=== PATIENT | female | born 1975 ===

== ENCOUNTER 2018-04-17 05:46 | Inpatient (IN) ==
[2018-04-17] MEDS ORDERED: DEXTROSE 50% 25 GM/50 ML VIAL IV PRN (08:50)
[2018-04-17] MEDS ORDERED: GLUCAGON 1 MG VIAL IM PRN (08:50)
[2018-04-17] MEDS: PANTOPRAZOLE 40 MG TABLET PO SCH (09:18)
[2018-04-17] MEDS: SODIUM CHLORIDE 0.9% 1,000 ML IV SCH (09:21)
[2018-04-17 10:00] LABS: Basophils % 0.1 % (0.0-0.8); Eosinophils # 0.1 10*3/uL (0.0-0.87); Eosinophils % 0.3 % (0.00-10.9); Hematocrit 26.6 VOL% (35.7-47.0); Hemoglobin 8.5 GM/DL (12.0-16.0); Immature Granulocytes % 0.8 %; Immature Granulocytes Absolute 0.19 #; Lymphocytes # 0.9 10*3/uL (1.4-4.0); Lymphocytes % 3.9 % (21.3-54.2); Mean Corpuscular Hemoglobin 30 PG (27-34); Mean Platelet Volume 11.4 FL (9.6-12.0); Monocytes # 0.2 10*3/uL (0.11-0.8); Monocytes % 0.9 % (1.7-12.7); Neutrophils # 21.5 10*3/uL (1.4-7.4); Platelet Count 195 T/CUMM (130-400); Red Blood Count 2.83 MC/CUMM (3.8-5.5); White Blood Count 22.9 T/CUMM (4-12)
[2018-04-17 10:20] LABS: Band Neutrophils 2 % (0-10); Lymphocytes 6 % (20-55); Microcytosis 1+; Segmented Neutrophils 90 % (50-85); Total Cells Counted 100
[2018-04-17 10:21] LABS: Platelet Estimate Adequate
[2018-04-17 10:27] LABS: Alanine Aminotransferase 17 U/L (13-56); Albumin 2.3 G/DL (3.4-5.0); Alkaline Phosphatase 124 U/L (45-117); Aspartate Amino Transferase 12 U/L (0-37); Bilirubin,Direct < 0.100 MG/DL (0.0-0.20); Bilirubin,Indirect 0.3 MG/DL (0.0-1.0); Total Protein 6.9 G/DL (6.4-8.3)
[2018-04-17 10:35] LABS: Calcium 7.6 MG/DL (8.5-10.1); Osmolality,Calculated 291.5 MOS/KG (273-304); Potassium 4.6 MMOL/L (3.5-5.1); Risk Ratio 2.79; Thyroid Stimulating Hormone 4.07 uIU/ml (0.358-3.74); VLDL CHOLESTEROL 16.8 MG/DL
[2018-04-17] MEDS: PIPERACILLIN/TAZOBACTAM 3,375 MG in SODIUM CHLORIDE 0.9% 100 ML IV SCH ×2 (11:36→23:43)
[2018-04-17] MEDS ORDERED: VANCOMYCIN INJ 1,500 MG in SODIUM CHLORIDE 0.9% 500 ML IV ONE (12:00)
[2018-04-17 12:54] LABS: Apearance,Urine Slightly Hazy (Clear); Bacteria,Urine Occasional /HPF (Few); Bilirubin,Urine Negative (Negative); Blood, Urine Small mg/dL (Negative); Glucose,Urine (UA) 150 mg/dL (Negative); Ketones,Urine Negative (Negative); Mucus,Urine Occasional /LPF (Occasional); Nitrite,Urine Negative (Negative); Protein,Urine >=500 MG/DL; RBC,Urine 1 /HPF (0-4); Squamous Epithelial Cell,Urine Occasional /HPF (0-10); Urine Color Yellow (Yellow); Urine Specific Gravity 1.011 (1.001-1.035); Urine Urobilinogen < 2.0 EU/DL (0.2-1.0); WBC,Urine 3 /HPF (0-6)
[2018-04-17] MEDS: cloNIDine 0.1 MG TABLET PO PRN (20:57)
[2018-04-17] MEDS: ACETAMINOPHEN 325 MG TABLET PO PRN (23:49)
[2018-04-18] MEDS: SODIUM CHLORIDE 0.9% 1,000 ML IV SCH ×2 (03:34→09:18)
[2018-04-18 05:15] LABS: Basophils % 0.1 % (0.0-0.8); Eosinophils # 0.2 10*3/uL (0.0-0.87); Hematocrit 21.4 VOL% (35.7-47.0); Immature Granulocytes % 1.4 %; Immature Granulocytes Absolute 0.21 #; Lymphocytes # 1.1 10*3/uL (1.4-4.0); Lymphocytes % 7.6 % (21.3-54.2); Mean Corpuscular HGB Conc 32.7 GM/DL (32-36); Mean Corpuscular Hemoglobin 30 PG (27-34); Mean Corpuscular Volume 92.2 FL (87-102); Mean Platelet Volume 11.3 FL (9.6-12.0); Monocytes # 0.3 10*3/uL (0.11-0.8); Monocytes % 1.7 % (1.7-12.7); Neutrophils # 13.3 10*3/uL (1.4-7.4); Neutrophils % 88.2 % (38.7-73.9); Platelet Count 202 T/CUMM (130-400); Red Blood Count 2.32 MC/CUMM (3.8-5.5); Red Cell Distribution Width 14.3 % (9.3-17.3); White Blood Count 15.1 T/CUMM (4-12)
[2018-04-18 05:35] LABS: Osmolality,Calculated 284.8 MOS/KG (273-304); Potassium 4.8 MMOL/L (3.5-5.1)
[2018-04-18 06:00] LABS: PT Patient Result 10.8 SECS; Partial Thromboplastin Time 36.2 SECS (0-40)
[2018-04-18] MEDS: PANTOPRAZOLE 40 MG TABLET PO SCH (09:18)
[2018-04-18] MEDS ORDERED: SODIUM CHLORIDE 0.9% 1,000 ML IV PRN (09:34)
[2018-04-18 10:08] LABS: Hematocrit 26.8 VOL% (35.7-47.0)
[2018-04-18 10:24] LABS: Hemoglobin 8.7 GM/DL (12.0-16.0)
[2018-04-18] MEDS: PIPERACILLIN/TAZOBACTAM 3,375 MG in SODIUM CHLORIDE 0.9% 100 ML IV SCH ×2 (10:41→22:07)
[2018-04-18] MEDS: ACETAMINOPHEN 325 MG TABLET PO PRN ×2 (11:06→17:52)
[2018-04-18 12:27] LABS: Protein/Creatinine Ratio,Urine 2.8 RATIO
[2018-04-18 12:57] LABS: Hepatitis A Ab IgM Quant 0.41 Index; Hepatitis A Ab IgM Result Negative (Negative); Hepatitis B Core IgM Quant 0.27 Index; Hepatitis B Core IgM Result Negative (Negative); Hepatitis B Surface Ag Quant < 0.10 Index; Hepatitis B Surface Ag Result Negative (Negative); Hepatitis C Virus Ab Quant 0.21 Index; Hepatitis C Virus Ab Result Negative (Negative)
[2018-04-19] MEDS: SODIUM CHLORIDE 0.9% 1,000 ML IV SCH ×2 (01:23→13:41)
[2018-04-19 05:24] LABS: Basophils % 0.1 % (0.0-0.8); Eosinophils # 0.2 10*3/uL (0.0-0.87); Eosinophils % 1.4 % (0.00-10.9); Hematocrit 21.8 VOL% (35.7-47.0); Immature Granulocytes % 0.4 %; Immature Granulocytes Absolute 0.05 #; Lymphocytes # 0.7 10*3/uL (1.4-4.0); Lymphocytes % 6.3 % (21.3-54.2); Mean Corpuscular HGB Conc 32.1 GM/DL (32-36); Mean Corpuscular Hemoglobin 29 PG (27-34); Mean Corpuscular Volume 91.2 FL (87-102); Mean Platelet Volume 10.7 FL (9.6-12.0); Monocytes # 0.2 10*3/uL (0.11-0.8); Monocytes % 1.9 % (1.7-12.7); Neutrophils # 10.6 10*3/uL (1.4-7.4); Neutrophils % 89.9 % (38.7-73.9); Platelet Count 200 T/CUMM (130-400); Red Blood Count 2.39 MC/CUMM (3.8-5.5); Red Cell Distribution Width 14.1 % (9.3-17.3); White Blood Count 11.8 T/CUMM (4-12)
[2018-04-19 05:39] LABS: Calcium 7.7 MG/DL (8.5-10.1); Osmolality,Calculated 292.4 MOS/KG (273-304); Potassium 4.6 MMOL/L (3.5-5.1)
[2018-04-19] MEDS ORDERED: SODIUM CHLORIDE 0.9% 1,000 ML IV PRN (07:03)
[2018-04-19] MEDS: PANTOPRAZOLE 40 MG TABLET PO SCH (10:01)
[2018-04-19] MEDS: ONDANSETRON 4 MG/2 ML VIAL IV PRN ×2 (10:01→14:31)
[2018-04-19] MEDS: cloNIDine 0.1 MG TABLET PO PRN ×2 (10:17→20:15)
[2018-04-19] MEDS: PIPERACILLIN/TAZOBACTAM 3,375 MG in SODIUM CHLORIDE 0.9% 100 ML IV SCH ×2 (13:39→20:15)
[2018-04-19] MEDS ORDERED: CALCIUM GLUCONATE 1,000 MG in SODIUM CHLORIDE 0.9% 100 ML IV ONE (15:00)
[2018-04-19] MEDS: ACETAMINOPHEN 325 MG TABLET PO PRN ×2 (15:29→20:15)
[2018-04-20] MEDS: SODIUM CHLORIDE 0.9% 1,000 ML IV SCH ×3 (02:15→15:40)
[2018-04-20 06:44] LABS: Basophils % 0.2 % (0.0-0.8); Eosinophils # 0.2 10*3/uL (0.0-0.87); Eosinophils % 2.5 % (0.00-10.9); Hematocrit 30.3 VOL% (35.7-47.0); Hemoglobin 9.8 GM/DL (12.0-16.0); Immature Granulocytes % 0.4 %; Immature Granulocytes Absolute 0.03 #; Lymphocytes # 0.8 10*3/uL (1.4-4.0); Lymphocytes % 9.7 % (21.3-54.2); Mean Corpuscular HGB Conc 32.3 GM/DL (32-36); Mean Corpuscular Hemoglobin 30 PG (27-34); Mean Corpuscular Volume 92.9 FL (87-102); Mean Platelet Volume 10.8 FL (9.6-12.0); Monocytes # 0.3 10*3/uL (0.11-0.8); Monocytes % 3.8 % (1.7-12.7); Neutrophils # 6.7 10*3/uL (1.4-7.4); Neutrophils % 83.4 % (38.7-73.9); Platelet Count 193 T/CUMM (130-400); Red Blood Count 3.26 MC/CUMM (3.8-5.5); Red Cell Distribution Width 14.1 % (9.3-17.3); White Blood Count 8.1 T/CUMM (4-12)
[2018-04-20 07:11] LABS: Calcium 8.1 MG/DL (8.5-10.1); Osmolality,Calculated 281.5 MOS/KG (273-304); Potassium 4.3 MMOL/L (3.5-5.1)
[2018-04-20 08:31] LABS: Total Protein (Chem) 5.8 G/DL (6.4-8.3)
[2018-04-20] MEDS: PANTOPRAZOLE 40 MG TABLET PO SCH (08:33)
[2018-04-20] MEDS: ACETAMINOPHEN 325 MG TABLET PO PRN (08:33)
[2018-04-20] MEDS: PIPERACILLIN/TAZOBACTAM 3,375 MG in SODIUM CHLORIDE 0.9% 100 ML IV SCH (08:33)
[2018-04-20 11:05] LABS: Albumin (SPE) 2.2 G/DL (3.2-5.3); Albumin (SPE) Rel % 38.2 %; Alpha 1 (SPE) 0.5 G/DL (0.1-0.4); Alpha 1 (SPE) Rel % 7.9 %; Alpha 2 (SPE) Rel % 17.6 %; Beta (SPE) Rel % 17.4 %; Gamma (SPE) 1.1 G/DL (0.7-1.7); Gamma (SPE) Rel % 18.9 %
[2018-04-20 11:11] LABS: Albumin (UPER) 226.1 MG/DL; Albumin (UPER) Rel% 57.1 %; Alpha 1 (UPER) 18.2 MG/DL; Alpha 1 (UPER) Rel% 4.6 %; Alpha 2 (UPER) 42.8 MG/DL; Alpha 2 (UPER) Rel % 10.8 %
[2018-04-20 11:12] LABS: Beta (UPER) 47.9 MG/DL; Beta (UPER) Rel % 12.1 %; Gamma (UPER) Rel % 15.4 %
[2018-04-20] MEDS: guaiFENesin 200 MG/10 ML UDCUP PO PRN (14:33)
[2018-04-20] MEDS: cloNIDine 0.1 MG TABLET PO PRN (15:14)
[2018-04-21] MEDS: SODIUM CHLORIDE 0.9% 1,000 ML IV SCH ×2 (04:25→04:28)
[2018-04-21] MEDS: guaiFENesin 200 MG/10 ML UDCUP PO PRN (04:46)
[2018-04-21 05:48] LABS: Calcium 8.3 MG/DL (8.5-10.1); Osmolality,Calculated 284.4 MOS/KG (273-304); Potassium 4.1 MMOL/L (3.5-5.1)
[2018-04-21] MEDS: PANTOPRAZOLE 40 MG TABLET PO SCH (08:55)
[2018-04-21 11:50] VITALS: BP 163/104
== END 2018-04-21 12:05 | disposition home or self-care (01) | DRG 684 ==
LOC: N.2E 07:01 → SUATTDRO 07:01
PROVIDERS: ADMIT Internal Medicine; ATTEND Internal Medicine Geriatric Medicine

== ENCOUNTER 2020-10-04 13:53 | Inpatient (IN) ==
[2020-10-04 15:27] LABS: Basophils % 0.4 % (0.0-0.8); Eosinophils # 0.1 10*3/uL (0.0-0.87); Eosinophils % 1.3 % (0.00-10.9); Hematocrit 21.3 VOL% (35.7-47.0); Hemoglobin 6.8 GM/DL (12.0-16.0); Immature Granulocytes % 0.4 %; Immature Granulocytes Absolute 0.03 #; Lymphocytes # 1.4 10*3/uL (1.4-4.0); Mean Corpuscular HGB Conc 31.9 GM/DL (32-36); Mean Platelet Volume 10.7 FL (9.6-12.0); Neutrophils % 71.9 % (38.7-73.9); Platelet Count 235 T/CUMM (130-400); Red Blood Count 2.29 MC/CUMM (3.8-5.5); Red Cell Distribution Width 14.5 % (9.3-17.3)
[2020-10-04 15:44] LABS: Calcium 6.7 MG/DL (8.5-10.1); Osmolality,Calculated 298.4 MOS/KG (273-304)
[2020-10-04] MEDS ORDERED: ZALEPLON 5 MG CAPSULE PO PRN (16:06)
[2020-10-04] MEDS ORDERED: PROMETHAZINE 25 MG/1 ML VIAL IM PRN (16:06)
[2020-10-04] MEDS ORDERED: hydrALAZINE 20 MG/1 ML VIAL IV PRN (16:06)
[2020-10-04] MEDS ORDERED: GLUCAGON 1 MG VIAL IM PRN (16:06)
[2020-10-04] MEDS ORDERED: DEXTROSE 50% 25 GM/50 ML VIAL IV PRN (16:06)
[2020-10-04] MEDS ORDERED: ACETAMINOPHEN 325 MG TABLET PO PRN (16:06)
[2020-10-04] MEDS ORDERED: traZODone 50 MG TABLET PO PRN (16:06)
[2020-10-04] MEDS ORDERED: SODIUM CHLORIDE 0.9% 1,000 ML IV PRN (16:10)
[2020-10-04] MEDS ORDERED: ACETAMINOPHEN 325 MG TABLET PO SCH (16:30)
[2020-10-04] MEDS ORDERED: diphenhydrAMINE CAP 25 MG CAPSULE PO SCH (16:30)
[2020-10-04] MEDS: INSULIN REGULAR 100 UNIT/ML SUBCUT SCH ×2 (18:02→21:53)
[2020-10-04] MEDS: carvediloL 3.125 MG TABLET PO SCH (21:53)
[2020-10-05 04:22] LABS: ABG Base Excess -11.7 MMOL/L (-2.5-2.5); ABG HCO3 13.9 MMOL/L (20-26); ABG Oxygen Saturation 97.2 % (95-100); ABG PCO2 30.3 MM HG (35-48); ABG TCO2 14.8 MMOL/L (23-27); Allen Test Positive; Pt O2 Delivery Device Room Air
[2020-10-05 06:07] LABS: Basophils % 0.3 % (0.0-0.8); Eosinophils # 0.1 10*3/uL (0.0-0.87); Eosinophils % 1.2 % (0.00-10.9); Hematocrit 26.8 VOL% (35.7-47.0); Hemoglobin 8.7 GM/DL (12.0-16.0); Immature Granulocytes % 0.4 %; Immature Granulocytes Absolute 0.04 #; Lymphocytes # 2.1 10*3/uL (1.4-4.0); Mean Corpuscular HGB Conc 32.5 GM/DL (32-36); Mean Corpuscular Volume 93.1 FL (87-102); Mean Platelet Volume 11.1 FL (9.6-12.0); Monocytes % 6.1 % (1.7-12.7); Platelet Count 215 T/CUMM (130-400); Red Blood Count 2.88 MC/CUMM (3.8-5.5); Red Cell Distribution Width 14.3 % (9.3-17.3)
[2020-10-05 06:27] LABS: Albumin 2.8 G/DL (3.4-5.0); Bilirubin,Total 0.8 MG/DL (0.2-1.0); Osmolality,Calculated 292.5 MOS/KG (273-304); Total Protein 6.8 G/DL (6.4-8.3)
[2020-10-05 06:35] LABS: Risk Ratio 2.78; Thyroid Stimulating Hormone 3.56 uIU/ml (0.358-3.74); VLDL CHOLESTEROL 13.6 MG/DL
[2020-10-05 07:19] LABS: Hepatitis B Core IgM Quant 0.13 Index; Hepatitis B Surface Ag Quant < 0.10 Index; Hepatitis B Surface Ag Result Negative (Negative); Hepatitis C Virus Ab Quant 0.03 Index; Hepatitis C Virus Ab Result Negative (Negative)
[2020-10-05 07:23] LABS: Folate 3.8 NG/ML (5.4-24.0)
[2020-10-05 07:24] LABS: % Iron Saturation 81.3 % (18-50); Ferritin 63.7 ng/ml (8-252)
[2020-10-05] MEDS: INSULIN REGULAR 100 UNIT/ML SUBCUT SCH ×4 (07:30→20:45)
[2020-10-05] MEDS ORDERED: ceFAZolin 1,000 MG in SYRINGE 1 EACH IV ONE (09:54)
[2020-10-05] MEDS ORDERED: hydrALAZINE 20 MG/1 ML VIAL IV ONE (10:35)
[2020-10-05] MEDS ORDERED: BUPIVACAINE MPF 0.25% 30 ML VIAL ONE (11:09)
[2020-10-05] MEDS ORDERED: LIDOCAINE 1%/EPI INJ 20 ML VIAL ONE (11:10)
[2020-10-05] MEDS ORDERED: TISSUE ADHESIVE 1 EACH APPLICATOR TOP ONE (11:10)
[2020-10-05] MEDS ORDERED: HEPARIN 5,000 UNIT/1 ML VIAL ONE (11:10)
[2020-10-05 11:34] LABS: Cyclic Citrull Peptide Interp Positive
[2020-10-05] MEDS ORDERED: LIDOCAINE 2% 5 ML VIAL ONE (11:35)
[2020-10-05] MEDS ORDERED: propofoL 200 MG/20 ML VIAL IV ONE (11:35)
[2020-10-05] MEDS ORDERED: SODIUM CHLORIDE 0.9% 100 ML IV ONE (11:35)
[2020-10-05] MEDS ORDERED: MIDAZOLAM 2 MG/2 ML VIAL ONE (11:35)
[2020-10-05] MEDS ORDERED: fentaNYL 100 MCG/2 ML VIAL ONE (11:36)
[2020-10-05] MEDS ORDERED: PHENYLEPHRINE 1 MG/10 ML SYRINGE IV ONE (12:19)
[2020-10-05] MEDS: predniSONE 5 MG TABLET PO SCH (13:40)
[2020-10-05] MEDS: carvediloL 3.125 MG TABLET PO SCH ×2 (13:40→20:39)
[2020-10-05] MEDS: PANTOPRAZOLE 40 MG TABLET PO SCH (13:40)
[2020-10-05] MEDS: hydrALAZINE 25 MG TABLET PO SCH ×2 (16:25→20:38)
[2020-10-05] MEDS: SEVELAMER CARBONATE 800 MG TABLET PO SCH (16:25)
[2020-10-05] MEDS: ONDANSETRON 4 MG/2 ML VIAL IV PRN (16:49)
[2020-10-05] MEDS: SODIUM BICARBONATE 650 MG TABLET PO SCH (23:02)
[2020-10-06 05:31] LABS: Basophils % 0.4 % (0.0-0.8); Eosinophils % 0.3 % (0.00-10.9); Hematocrit 26.2 VOL% (35.7-47.0); Hemoglobin 8.3 GM/DL (12.0-16.0); Immature Granulocytes % 0.3 %; Immature Granulocytes Absolute 0.03 #; Lymphocytes # 1.3 10*3/uL (1.4-4.0); Lymphocytes % 13.9 % (21.3-54.2); Mean Corpuscular HGB Conc 31.7 GM/DL (32-36); Mean Corpuscular Volume 94.2 FL (87-102); Mean Platelet Volume 10.6 FL (9.6-12.0); Monocytes % 4.7 % (1.7-12.7); Neutrophils % 80.4 % (38.7-73.9); Platelet Count 194 T/CUMM (130-400); Red Blood Count 2.78 MC/CUMM (3.8-5.5); White Blood Count 9.1 T/CUMM (4-12)
[2020-10-06 05:58] LABS: Alanine Aminotransferase < 9 U/L (13-56); Albumin 2.6 G/DL (3.4-5.0); Alkaline Phosphatase 98 U/L (45-117); Aspartate Amino Transferase 10 U/L (0-37); Blood Urea Nitrogen 60 MG/DL (7-18); Estimated Glom Filtration Rate 6 ML/MIN; Glucose 90 MG/DL (74-106); Osmolality,Calculated 297.3 MOS/KG (273-304); Total Protein 6.6 G/DL (6.4-8.3)
[2020-10-06] MEDS ORDERED: SODIUM CHLORIDE 0.9% 1,000 ML IV PRN (07:03)
[2020-10-06 09:02] LABS: Bacteria,Urine Occasional /HPF (Few); Bilirubin,Urine Negative (Negative); Blood, Urine Negative (Negative); Glucose,Urine (UA) 50 mg/dL (Negative); Ketones,Urine Negative (Negative); Mucus,Urine Occasional /LPF (Occasional); Nitrite,Urine Negative (Negative); Protein,Urine >=500 MG/DL; RBC,Urine 9 /HPF (0-4); Squamous Epithelial Cell,Urine Few /HPF (0-10); Triple Phosphate Crystal,Urine Few /HPF (Few); Urine Appearance CLOUDY (Clear); Urine Color Yellow (Yellow); Urine Specific Gravity 1.013 (1.001-1.035); Urine Urobilinogen < 2.0 EU/DL (0.2-1.0); WBC,Urine 11 /HPF (0-6)
[2020-10-06] MEDS: INSULIN REGULAR 100 UNIT/ML SUBCUT SCH ×4 (10:03→21:00)
[2020-10-06] MEDS: SEVELAMER CARBONATE 800 MG TABLET PO SCH ×3 (10:04→16:13)
[2020-10-06] MEDS ORDERED: HEPARIN 10,000 UNIT/10 ML VIAL IV SCH (11:00)
[2020-10-06] MEDS: hydrALAZINE 25 MG TABLET PO SCH ×3 (12:33→21:27)
[2020-10-06] MEDS: SODIUM BICARBONATE 650 MG TABLET PO SCH ×3 (12:33→21:27)
[2020-10-06] MEDS: predniSONE 5 MG TABLET PO SCH (13:17)
[2020-10-06] MEDS: carvediloL 3.125 MG TABLET PO SCH ×2 (13:17→21:27)
[2020-10-06] MEDS: PANTOPRAZOLE 40 MG TABLET PO SCH (13:17)
[2020-10-06] MEDS: ONDANSETRON 4 MG/2 ML VIAL IV PRN (17:22)
[2020-10-06] MEDS: cefTRIAXone 1,000 MG in SYRINGE 1 EACH IV SCH (17:24)
[2020-10-07 07:43] LABS: Basophils % 0.4 % (0.0-0.8); Eosinophils # 0.1 10*3/uL (0.0-0.87); Eosinophils % 0.8 % (0.00-10.9); Hematocrit 29.3 VOL% (35.7-47.0); Hemoglobin 9.5 GM/DL (12.0-16.0); Immature Granulocytes % 0.5 %; Immature Granulocytes Absolute 0.05 #; Lymphocytes # 1.6 10*3/uL (1.4-4.0); Lymphocytes % 14.8 % (21.3-54.2); Mean Corpuscular HGB Conc 32.4 GM/DL (32-36); Mean Corpuscular Volume 91.3 FL (87-102); Mean Platelet Volume 10.8 FL (9.6-12.0); Monocytes % 7.1 % (1.7-12.7); Neutrophils % 76.4 % (38.7-73.9); Platelet Count 160 T/CUMM (130-400); Red Blood Count 3.21 MC/CUMM (3.8-5.5); Red Cell Distribution Width 14.7 % (9.3-17.3); White Blood Count 10.7 T/CUMM (4-12)
[2020-10-07 08:14] LABS: Alanine Aminotransferase < 6 U/L (13-56); Albumin 2.5 G/DL (3.4-5.0); Alkaline Phosphatase 100 U/L (45-117); Aspartate Amino Transferase 15 U/L (0-37); Bilirubin,Total < 0.39 MG/DL (0.2-1.0); Blood Urea Nitrogen 41 MG/DL (7-18); Calcium 7.2 MG/DL (8.5-10.1); Estimated Glom Filtration Rate 8 ML/MIN; Glucose 81 MG/DL (74-106); Osmolality,Calculated 276.2 MOS/KG (273-304); Total Protein 6.7 G/DL (6.4-8.3)
[2020-10-07] MEDS: INSULIN REGULAR 100 UNIT/ML SUBCUT SCH ×4 (08:37→20:34)
[2020-10-07] MEDS: predniSONE 5 MG TABLET PO SCH (08:38)
[2020-10-07] MEDS: SODIUM BICARBONATE 650 MG TABLET PO SCH ×3 (08:38→20:30)
[2020-10-07] MEDS: PANTOPRAZOLE 40 MG TABLET PO SCH (08:38)
[2020-10-07] MEDS: carvediloL 3.125 MG TABLET PO SCH ×2 (08:38→20:30)
[2020-10-07] MEDS: SEVELAMER CARBONATE 800 MG TABLET PO SCH ×3 (08:38→16:07)
[2020-10-07] MEDS: hydrALAZINE 25 MG TABLET PO SCH ×3 (08:38→20:30)
[2020-10-07] MEDS: ONDANSETRON 4 MG/2 ML VIAL IV PRN (08:39)
[2020-10-07] MEDS: cefTRIAXone 1,000 MG in SYRINGE 1 EACH IV SCH (17:07)
[2020-10-08] MEDS: ONDANSETRON 4 MG/2 ML VIAL IV PRN ×2 (03:41→16:00)
[2020-10-08 05:16] LABS: Basophils % 0.3 % (0.0-0.8); Eosinophils # 0.1 10*3/uL (0.0-0.87); Eosinophils % 1.1 % (0.00-10.9); Hematocrit 29.7 VOL% (35.7-47.0); Hemoglobin 9.5 GM/DL (12.0-16.0); Immature Granulocytes % 0.3 %; Immature Granulocytes Absolute 0.03 #; Lymphocytes # 1.8 10*3/uL (1.4-4.0); Lymphocytes % 18.7 % (21.3-54.2); Mean Corpuscular Volume 92.2 FL (87-102); Mean Platelet Volume 10.9 FL (9.6-12.0); Monocytes % 8.7 % (1.7-12.7); Neutrophils % 70.9 % (38.7-73.9); Platelet Count 174 T/CUMM (130-400); Red Blood Count 3.22 MC/CUMM (3.8-5.5); Red Cell Distribution Width 14.6 % (9.3-17.3); White Blood Count 9.4 T/CUMM (4-12)
[2020-10-08 05:35] LABS: Alanine Aminotransferase < 6 U/L (13-56); Albumin 2.7 G/DL (3.4-5.0); Alkaline Phosphatase 101 U/L (45-117); Aspartate Amino Transferase 9 U/L (0-37); Blood Urea Nitrogen 47 MG/DL (7-18); Calcium 6.9 MG/DL (8.5-10.1); Estimated Glom Filtration Rate 7 ML/MIN; Glucose 79 MG/DL (74-106); Osmolality,Calculated 283.8 MOS/KG (273-304); Total Protein 6.7 G/DL (6.4-8.3)
[2020-10-08] MEDS: INSULIN REGULAR 100 UNIT/ML SUBCUT SCH ×4 (08:59→20:37)
[2020-10-08] MEDS: SEVELAMER CARBONATE 800 MG TABLET PO SCH ×3 (09:00→17:01)
[2020-10-08] MEDS: predniSONE 5 MG TABLET PO SCH (09:00)
[2020-10-08] MEDS: SODIUM BICARBONATE 650 MG TABLET PO SCH ×3 (09:00→20:49)
[2020-10-08] MEDS: hydrALAZINE 25 MG TABLET PO SCH ×3 (09:00→20:50)
[2020-10-08] MEDS: carvediloL 3.125 MG TABLET PO SCH ×2 (09:00→20:50)
[2020-10-08] MEDS: PANTOPRAZOLE 40 MG TABLET PO SCH (09:00)
[2020-10-08] MEDS ORDERED: DEXTROSE 50% 25 GM/50 ML VIAL IV PRN (14:28)
[2020-10-08] MEDS: cefTRIAXone 1,000 MG in SYRINGE 1 EACH IV SCH (17:01)
[2020-10-09 05:47] LABS: Basophils % 0.5 % (0.0-0.8); Eosinophils # 0.1 10*3/uL (0.0-0.87); Eosinophils % 1.4 % (0.00-10.9); Hematocrit 29.6 VOL% (35.7-47.0); Hemoglobin 9.5 GM/DL (12.0-16.0); Immature Granulocytes % 0.3 %; Immature Granulocytes Absolute 0.02 #; Lymphocytes # 1.8 10*3/uL (1.4-4.0); Lymphocytes % 24.1 % (21.3-54.2); Mean Corpuscular HGB Conc 32.1 GM/DL (32-36); Mean Corpuscular Volume 92.5 FL (87-102); Mean Platelet Volume 11.5 FL (9.6-12.0); Monocytes % 9.5 % (1.7-12.7); Neutrophils % 64.2 % (38.7-73.9); Platelet Count 168 T/CUMM (130-400); Red Cell Distribution Width 14.4 % (9.3-17.3); White Blood Count 7.3 T/CUMM (4-12)
[2020-10-09 06:21] LABS: Alanine Aminotransferase < 6 U/L (13-56); Albumin 2.4 G/DL (3.4-5.0); Alkaline Phosphatase 96 U/L (45-117); Aspartate Amino Transferase 8 U/L (0-37); Blood Urea Nitrogen 20 MG/DL (7-18); Calcium 7.8 MG/DL (8.5-10.1); Estimated Glom Filtration Rate 11 ML/MIN; Glucose 72 MG/DL (74-106); Total Protein 6.3 G/DL (6.4-8.3)
[2020-10-09] MEDS: INSULIN REGULAR 100 UNIT/ML SUBCUT SCH ×2 (08:18→13:31)
[2020-10-09] MEDS: hydrALAZINE 25 MG TABLET PO SCH ×2 (08:19→14:40)
[2020-10-09] MEDS: predniSONE 5 MG TABLET PO SCH (08:19)
[2020-10-09] MEDS: SEVELAMER CARBONATE 800 MG TABLET PO SCH ×2 (08:19→13:32)
[2020-10-09] MEDS: SODIUM BICARBONATE 650 MG TABLET PO SCH ×2 (08:19→14:40)
[2020-10-09] MEDS: PANTOPRAZOLE 40 MG TABLET PO SCH (08:20)
[2020-10-09] MEDS: carvediloL 3.125 MG TABLET PO SCH (08:20)
[2020-10-09] MEDS ORDERED: FOLIC ACID 1 MG TABLET PO SCH (09:00)
[2020-10-09 12:31] VITALS: BP 125/69
[2020-10-11 12:59] LABS: Anti SS-A Antibodies < 16 EU/ML
== END 2020-10-09 15:33 | disposition home or self-care (01) | DRG 674 ==
LOC: N.ED 13:53 → N.EDINP 15:59 → SUATTDRO 15:59 → N.EDINP 17:30 → N.TELES 17:39
PROVIDERS: ADMIT Internal Medicine; ATTEND Internal Medicine

== ENCOUNTER 2022-02-11 10:44 | Inpatient (IN) ==
[2022-02-11] MEDS ORDERED: DEXTROSE 50% 25 GM/50 ML SYRINGE IV ONE ×3 (11:49→17:41)
[2022-02-11] MEDS ORDERED: DEXTROSE 50% 25 GM/50 ML VIAL IV STA ×2 (11:49→14:35)
[2022-02-11 13:37] LABS: Basophils % 0.2 % (0.0-0.8); Eosinophils % 0.1 % (0.00-10.9); Hematocrit 26.9 VOL% (35.7-47.0); Hemoglobin 8.6 GM/DL (12.0-16.0); Immature Granulocytes % 0.8 %; Immature Granulocytes Absolute 0.14 #; Lymphocytes # 0.9 10*3/uL (1.4-4.0); Lymphocytes % 5.4 % (21.3-54.2); Mean Corpuscular Volume 99.6 FL (87-102); Mean Platelet Volume 9.6 FL (9.6-12.0); Neutrophils % 88.5 % (38.7-73.9); Platelet Count 254 T/CUMM (130-400); Red Cell Distribution Width 15.7 % (9.3-17.3); White Blood Count 17.5 T/CUMM (4-12)
[2022-02-11 13:59] LABS: Albumin 3.2 G/DL (3.4-5.0); Bilirubin,Total 0.8 MG/DL (0.20-1.00); Osmolality,Calculated 304.5 MOS/KG (273-304); Potassium 4.5 MMOL/L (3.5-5.1); Total Protein 7.8 G/DL (6.4-8.2)
[2022-02-11] MEDS ORDERED: LORazepam 2 MG/1 ML VIAL IV STA (14:57)
[2022-02-11] MEDS ORDERED: DEXTROSE 5% 1,000 ML IV SCH (15:00)
[2022-02-11] MEDS ORDERED: GLUCAGON 1 MG VIAL IM PRN (15:11)
[2022-02-11] MEDS ORDERED: ONDANSETRON 4 MG/2 ML VIAL IV PRN (15:11)
[2022-02-11] MEDS ORDERED: GABAPENTIN 100 MG CAPSULE PO ONE (15:19)
[2022-02-11] MEDS ORDERED: DEXTROSE 10% 250 ML BAG IV PRN ×3 (15:28→18:32)
[2022-02-11] MEDS: DEXTROSE 50% 25 GM/50 ML SYRINGE IV PRN ×4 (17:42→23:25)
[2022-02-11] MEDS: diphenhydrAMINE CAP 25 MG CAPSULE PO PRN (18:10)
[2022-02-11] MEDS: DEXTROSE 10% 500 ML IV SCH (18:11)
[2022-02-11] MEDS ORDERED: DEXTROSE 10% 1,000 ML IV SCH (18:30)
[2022-02-11] MEDS: diphenhydrAMINE 2% CREAM 28 GM TUBE TOP PRN (21:18)
[2022-02-11] MEDS: HYDROCORTISONE 100 MG VIAL IV SCH (23:37)
[2022-02-12] MEDS: diphenhydrAMINE CAP 25 MG CAPSULE PO PRN ×4 (03:42→22:01)
[2022-02-12 04:02] LABS: Basophils % 0.2 % (0.0-0.8); Eosinophils % 0.1 % (0.00-10.9); Hematocrit 25.6 VOL% (35.7-47.0); Hemoglobin 8.2 GM/DL (12.0-16.0); Immature Granulocytes % 0.8 %; Immature Granulocytes Absolute 0.15 #; Lymphocytes # 0.4 10*3/uL (1.4-4.0); Lymphocytes % 2.2 % (21.3-54.2); Mean Corpuscular Volume 99.6 FL (87-102); Monocytes % 2.2 % (1.7-12.7); Neutrophils % 94.5 % (38.7-73.9); Platelet Count 255 T/CUMM (130-400); Red Blood Count 2.57 MC/CUMM (3.8-5.5); Red Cell Distribution Width 15.8 % (9.3-17.3)
[2022-02-12] MEDS: diphenhydrAMINE 2% CREAM 28 GM TUBE TOP PRN ×3 (04:10→18:11)
[2022-02-12 04:21] LABS: Bilirubin,Total 0.8 MG/DL (0.20-1.00); Calcium 7.8 MG/DL (8.5-10.1); Potassium 5.2 MMOL/L (3.5-5.1); Total Protein 7.5 G/DL (6.4-8.2)
[2022-02-12 04:24] LABS: Eosinophils 1 % (0-10); Hypochromia 1+; Lymphocytes 1 % (20-55); Microcytosis 1+; Platelet Estimate Adequate; Segmented Neutrophils 95 % (50-85); Total Cells Counted 100
[2022-02-12] MEDS: ACETAMINOPHEN 325 MG TABLET PO PRN ×2 (04:43→12:11)
[2022-02-12] MEDS: HYDROCORTISONE 100 MG VIAL IV SCH ×4 (05:09→23:11)
[2022-02-12] MEDS: PANTOPRAZOLE 40 MG TABLET PO SCH (09:11)
[2022-02-12] MEDS: cefTRIAXone 1,000 MG in SODIUM CHLORIDE 0.9% 100 ML IV SCH (09:11)
[2022-02-12] MEDS: DEXTROSE 10% 500 ML IV SCH (12:16)
[2022-02-12] MEDS ORDERED: EPOETIN ALFA-EPBX 4,000 UNIT/ML VIAL IV PRN (12:58)
[2022-02-12 13:23] LABS: Urine Appearance Clear (Clear); Urine Color Yellow (Yellow); Urine pH 5.5 (4.5-8.0)
[2022-02-12 13:25] LABS: Protein,Urine 100 mg/dL (Negative)
[2022-02-12 13:26] LABS: Bilirubin,Urine Negative (Negative); Blood, Urine Trace mg/dL (Negative); Glucose,Urine (UA) Negative (Negative); Ketones,Urine Negative (Negative); Nitrite,Urine Negative (Negative); Urine Urobilinogen 0.2 eU/dL (<2.0)
[2022-02-12 13:27] LABS: Bacteria,Urine Few /HPF (Few); Mucus,Urine Occasional /LPF (Occasional); RBC,Urine 1 /HPF (0-4); Squamous Epithelial Cell,Urine Occasional /HPF (0-10)
[2022-02-12 14:15] LABS: Barbiturates Screen,Urine Negative (Negative); Benzodiazepines Screen,Urine Negative (Negative); Cannabinoid Screen,Urine Negative (Negative); Opiate Screen,Urine Negative (Negative); Phencyclidine Screen,Urine Negative (Negative)
[2022-02-12] MEDS ORDERED: VANCOMYCIN INJ 1,500 MG in SODIUM CHLORIDE 0.9% 500 ML IV ONE (17:00)
[2022-02-12] MEDS ORDERED: INFLUENZA VIRUS VACCINE 0.5 ML SYRINGE IM ONE (18:47)
[2022-02-13 03:58] LABS: Basophils % 0.1 % (0.0-0.8); Hematocrit 25.9 VOL% (35.7-47.0); Hemoglobin 8.4 GM/DL (12.0-16.0); Immature Granulocytes % 1.5 %; Immature Granulocytes Absolute 0.31 #; Lymphocytes # 0.4 10*3/uL (1.4-4.0); Mean Corpuscular HGB Conc 32.4 GM/DL (32-36); Mean Corpuscular Volume 97.4 FL (87-102); Mean Platelet Volume 9.7 FL (9.6-12.0); Monocytes % 2.2 % (1.7-12.7); Neutrophils % 94.2 % (38.7-73.9); Platelet Count 284 T/CUMM (130-400); Red Blood Count 2.66 MC/CUMM (3.8-5.5); Red Cell Distribution Width 15.7 % (9.3-17.3); White Blood Count 20.5 T/CUMM (4-12)
[2022-02-13 04:14] LABS: Calcium 8.6 MG/DL (8.5-10.1); Osmolality,Calculated 294.7 MOS/KG (273-304); Potassium 3.9 MMOL/L (3.5-5.1)
[2022-02-13 04:20] LABS: Band Neutrophils 2 % (0-10); Hypochromia 1+; Lymphocytes 2 % (20-55); Microcytosis 1+; Platelet Estimate Adequate; Segmented Neutrophils 95 % (50-85); Total Cells Counted 100
[2022-02-13] MEDS: HYDROCORTISONE 100 MG VIAL IV SCH (06:01)
[2022-02-13] MEDS: PANTOPRAZOLE 40 MG TABLET PO SCH (09:31)
[2022-02-13] MEDS: diphenhydrAMINE CAP 25 MG CAPSULE PO PRN (09:31)
[2022-02-13] MEDS: cefTRIAXone 1,000 MG in SODIUM CHLORIDE 0.9% 100 ML IV SCH (09:31)
[2022-02-13] MEDS ORDERED: VANCOMYCIN INJ 500 MG in SODIUM CHLORIDE 0.9% 100 ML IV PRN (09:56)
[2022-02-13] MEDS ORDERED: ALUM/MAG/SIMETH/LIDO VISC 1:1 30 ML BOTTLE PO ONE ×2 (13:55→14:30)
[2022-02-13] MEDS ORDERED: VANCOMYCIN INJ 500 MG in SODIUM CHLORIDE 0.9% 100 ML IV ONE (17:00)
[2022-02-14] MEDS ORDERED: ALUM/MAG/SIMETH/LIDO VISC 1:1 30 ML BOTTLE PO ONE ×3 (04:47→12:48)
[2022-02-14 05:58] LABS: Calcium 8.9 MG/DL (8.5-10.1); Osmolality,Calculated 286.5 MOS/KG (273-304); Potassium 4.1 MMOL/L (3.5-5.1)
[2022-02-14] MEDS: cefTRIAXone 1,000 MG in SODIUM CHLORIDE 0.9% 100 ML IV SCH (08:31)
[2022-02-14] MEDS: PANTOPRAZOLE 40 MG TABLET PO SCH ×2 (08:31→21:24)
[2022-02-14 10:10] LABS: Basophils % 0.6 % (0.0-0.8); Eosinophils # 0.1 10*3/uL (0.0-0.87); Eosinophils % 0.7 % (0.00-10.9); Hematocrit 27.7 VOL% (35.7-47.0); Hemoglobin 8.5 GM/DL (12.0-16.0); Immature Granulocytes % 4.2 %; Immature Granulocytes Absolute 0.29 #; Lymphocytes # 2.5 10*3/uL (1.4-4.0); Lymphocytes % 36.5 % (21.3-54.2); Mean Corpuscular HGB Conc 30.7 GM/DL (32-36); Mean Corpuscular Volume 101.1 FL (87-102); Mean Platelet Volume 9.9 FL (9.6-12.0); Monocytes % 10.4 % (1.7-12.7); Neutrophils % 47.6 % (38.7-73.9); Platelet Count 348 T/CUMM (130-400); Red Blood Count 2.74 MC/CUMM (3.8-5.5); Red Cell Distribution Width 15.5 % (9.3-17.3); White Blood Count 6.8 T/CUMM (4-12)
[2022-02-14 10:28] LABS: Albumin 2.6 G/DL (3.4-5.0); Bilirubin,Total 0.5 MG/DL (0.20-1.00); Calcium 8.5 MG/DL (8.5-10.1); Osmolality,Calculated 288.7 MOS/KG (273-304); Potassium 3.9 MMOL/L (3.5-5.1); Total Protein 7.4 G/DL (6.4-8.2)
[2022-02-14] MEDS ORDERED: MORPHINE 2 MG/1 ML SYRINGE IV ONE (12:11)
[2022-02-14] MEDS ORDERED: MORPHINE 2 MG/1 ML SYRINGE ONE (12:12)
[2022-02-14] MEDS ORDERED: MORPHINE 2 MG/1 ML SYRINGE IV PRN (12:54)
[2022-02-14] MEDS: ASPIRIN CHEW 81 MG TABLET PO SCH (13:15)
[2022-02-14 13:26] LABS: % Iron Saturation 76.3 % (18-50)
[2022-02-14] MEDS: HEPARIN 5,000 UNIT/1 ML VIAL SUBCUT SCH ×2 (13:37→21:24)
[2022-02-14 14:12] LABS: Folate 4.97 NG/ML (5.38-24.0)
[2022-02-14] MEDS: diphenhydrAMINE CAP 25 MG CAPSULE PO PRN (22:35)
[2022-02-15] MEDS: diphenhydrAMINE 2% CREAM 28 GM TUBE TOP PRN ×2 (01:02→06:20)
[2022-02-15] MEDS: diphenhydrAMINE CAP 25 MG CAPSULE PO PRN (04:04)
[2022-02-15 05:34] LABS: Basophils % 0.4 % (0.0-0.8); Eosinophils # 0.1 10*3/uL (0.0-0.87); Eosinophils % 1.1 % (0.00-10.9); Hematocrit 28.2 VOL% (35.7-47.0); Hemoglobin 8.8 GM/DL (12.0-16.0); Immature Granulocytes % 2.5 %; Immature Granulocytes Absolute 0.24 #; Lymphocytes # 2.5 10*3/uL (1.4-4.0); Lymphocytes % 26.6 % (21.3-54.2); Mean Corpuscular HGB Conc 31.2 GM/DL (32-36); Mean Corpuscular Volume 102.2 FL (87-102); Mean Platelet Volume 10.6 FL (9.6-12.0); Monocytes % 9.8 % (1.7-12.7); Neutrophils % 59.6 % (38.7-73.9); Platelet Count 297 T/CUMM (130-400); Red Blood Count 2.76 MC/CUMM (3.8-5.5); Red Cell Distribution Width 15.4 % (9.3-17.3); White Blood Count 9.5 T/CUMM (4-12)
[2022-02-15 05:56] LABS: Osmolality,Calculated 279.4 MOS/KG (273-304)
[2022-02-15 07:09] LABS: Alanine Aminotransferase 24 U/L (13-56); Albumin 2.9 G/DL (3.4-5.0); Alkaline Phosphatase 80 U/L (45-117); Aspartate Amino Transferase 27 U/L (0-37); Bilirubin,Total < 0.39 MG/DL (0.20-1.00); Blood Urea Nitrogen 53 MG/DL (7-18); Calcium 8.8 MG/DL (8.5-10.1); Carbon Dioxide 22 MMOL/L (21-32); Estimated Glom Filtration Rate 6 ML/MIN; Glucose 88 MG/DL (74-106); Osmolality,Calculated 278.4 MOS/KG (273-304); Sodium 133 MMOL/L (136-145); Total Protein 7.8 G/DL (6.4-8.2)
[2022-02-15] MEDS: PANTOPRAZOLE 40 MG TABLET PO SCH ×2 (09:03→21:44)
[2022-02-15] MEDS: ASPIRIN CHEW 81 MG TABLET PO SCH (09:03)
[2022-02-15] MEDS: HEPARIN 5,000 UNIT/1 ML VIAL SUBCUT SCH ×2 (09:04→21:45)
[2022-02-15] MEDS ORDERED: NITROGLYCERIN SL 0.4 MG TABLET SL ONE (14:26)
[2022-02-15] MEDS ORDERED: MORPHINE 2 MG/1 ML SYRINGE IV ONE (14:27)
[2022-02-15] MEDS ORDERED: ASPIRIN CHEW 81 MG TABLET PO ONE (14:28)
[2022-02-15] MEDS ORDERED: NITROGLYCERIN SL 0.4 MG TABLET SL PRN (14:28)
[2022-02-15] MEDS ORDERED: ALUM/MAG/SIMETH/LIDO VISC 1:1 30 ML BOTTLE PO STA (14:28)
[2022-02-15] MEDS: cefTRIAXone 1,000 MG in SODIUM CHLORIDE 0.9% 100 ML IV SCH (18:33)
[2022-02-15] MEDS: FOLIC ACID 1 MG TABLET PO SCH (21:44)
[2022-02-15] MEDS: cefTRIAXone 1,000 MG VIAL IM SCH (21:46)
[2022-02-16 00:48] LABS: Basophils % 0.1 % (0.0-0.8); Eosinophils # 0.1 10*3/uL (0.0-0.87); Eosinophils % 0.8 % (0.00-10.9); Hematocrit 25.5 VOL% (35.7-47.0); Immature Granulocytes % 2.4 %; Immature Granulocytes Absolute 0.23 #; Lymphocytes # 0.8 10*3/uL (1.4-4.0); Lymphocytes % 8.6 % (21.3-54.2); Mean Corpuscular HGB Conc 31.4 GM/DL (32-36); Mean Corpuscular Volume 100.4 FL (87-102); Mean Platelet Volume 9.6 FL (9.6-12.0); Monocytes % 8.4 % (1.7-12.7); Neutrophils % 79.7 % (38.7-73.9); Platelet Count 240 T/CUMM (130-400); Red Blood Count 2.54 MC/CUMM (3.8-5.5); Red Cell Distribution Width 14.8 % (9.3-17.3); White Blood Count 9.6 T/CUMM (4-12)
[2022-02-16 00:55] LABS: Calcium 8.6 MG/DL (8.5-10.1); Potassium 4.4 MMOL/L (3.5-5.1)
[2022-02-16] MEDS: FOLIC ACID 1 MG TABLET PO SCH (09:22)
[2022-02-16] MEDS: ASPIRIN CHEW 81 MG TABLET PO SCH (09:22)
[2022-02-16] MEDS: PANTOPRAZOLE 40 MG TABLET PO SCH ×2 (09:22→22:23)
[2022-02-16] MEDS: HEPARIN 5,000 UNIT/1 ML VIAL SUBCUT SCH ×2 (09:23→22:23)
[2022-02-16] MEDS: cefTRIAXone 1,000 MG VIAL IM SCH (22:23)
[2022-02-17] MEDS ORDERED: SODIUM CHLORIDE 0.9% 500 ML IV SCH (08:00)
[2022-02-17] MEDS ORDERED: ETOMIDATE 20 MG/10 ML VIAL IV ONE (08:24)
[2022-02-17] MEDS ORDERED: LIDOCAINE 2% 5 ML VIAL ONE (08:24)
[2022-02-17] MEDS ORDERED: propofoL 200 MG/20 ML VIAL IV ONE (08:24)
[2022-02-17] MEDS ORDERED: ONDANSETRON 4 MG/2 ML VIAL ONE (08:36)
[2022-02-17] MEDS: FOLIC ACID 1 MG TABLET PO SCH (10:06)
[2022-02-17] MEDS: ASPIRIN CHEW 81 MG TABLET PO SCH (10:06)
[2022-02-17] MEDS: PANTOPRAZOLE 40 MG TABLET PO SCH ×2 (10:07→20:22)
[2022-02-17] MEDS: HEPARIN 5,000 UNIT/1 ML VIAL SUBCUT SCH ×2 (10:07→20:23)
[2022-02-17] MEDS ORDERED: BISACODYL 5 MG TABLET PO ONE (12:00)
[2022-02-17] MEDS ORDERED: POLYETHYLENE GLYCOL POWDER 255 GM BOTTLE PO ONE (18:00)
[2022-02-17] MEDS ORDERED: SODIUM CHLORIDE 0.9% 100 ML IV ONE (20:14)
[2022-02-17] MEDS: cefTRIAXone 1,000 MG VIAL IM SCH (20:22)
[2022-02-17] MEDS ORDERED: cefTRIAXone 1,000 MG in SODIUM CHLORIDE 0.9% 100 ML IV SCH (21:00)
[2022-02-18 05:57] LABS: INR 0.9; PT Patient Result 10.3 SECS (10.5-12.0)
[2022-02-18] MEDS ORDERED: SODIUM CHLORIDE 0.9% 1,000 ML IV SCH (08:00)
[2022-02-18] MEDS ORDERED: ONDANSETRON 4 MG/2 ML VIAL ONE (09:09)
[2022-02-18] MEDS ORDERED: PHENYLEPHRINE 1 MG/10 ML SYRINGE IV ONE (09:09)
[2022-02-18] MEDS ORDERED: LIDOCAINE 2% 5 ML VIAL ONE (09:09)
[2022-02-18] MEDS ORDERED: propofoL 200 MG/20 ML VIAL IV ONE ×2 (09:09→09:17)
[2022-02-18] MEDS ORDERED: ETOMIDATE 20 MG/10 ML VIAL IV ONE (09:09)
[2022-02-18] MEDS: PANTOPRAZOLE 40 MG TABLET PO SCH (15:07)
[2022-02-18] MEDS: HEPARIN 5,000 UNIT/1 ML VIAL SUBCUT SCH (15:07)
[2022-02-18] MEDS: FOLIC ACID 1 MG TABLET PO SCH (15:08)
[2022-02-18] MEDS: ASPIRIN CHEW 81 MG TABLET PO SCH (15:08)
[2022-02-18 15:44] VITALS: BP 133/61
== END 2022-02-18 17:15 | disposition home or self-care (01) | DRG 638 ==
LOC: EDUNIT# → EDBD → N.ED 10:44 → N.EDINP 10:44 → N.ICU 15:58 → SUATTDRO 02-12 08:24 → N.5E 02-14 15:01
PROVIDERS: ADMIT Internal Medicine; ATTEND Emergency Medicine

== ENCOUNTER 2022-12-04 11:19 | Inpatient (IN) ==
[2022-12-04 12:02] LABS: Basophils # 0.1 10*3/uL (0.0-0.2); Basophils % 0.2 % (0.0-0.8); Hematocrit 26.9 VOL% (35.7-47.0); Hemoglobin 8.3 GM/DL (12.0-16.0); Immature Granulocytes % 4.9 %; Immature Granulocytes Absolute 1.26 #; Lymphocytes # 0.7 10*3/uL (1.4-4.0); Lymphocytes % 2.5 % (21.3-54.2); Mean Corpuscular HGB Conc 30.9 GM/DL (32-36); Mean Corpuscular Volume 96.1 FL (87-102); Mean Platelet Volume 11.9 FL (9.6-12.0); Monocytes # 0.8 10*3/uL (0.11-0.8); Monocytes % 3.1 % (1.7-12.7); NRBC # 0.02 10*3/uL; Neutrophils % 89.3 % (38.7-73.9); Platelet Count 181 T/CUMM (130-400); Red Cell Distribution Width 14.9 % (9.3-17.3); White Blood Count 25.9 T/CUMM (4-12)
[2022-12-04 12:23] LABS: Alanine Aminotransferase 28 U/L (13-56); Albumin 3.2 G/DL (3.4-5.0); Alkaline Phosphatase 90 U/L (45-117); Aspartate Amino Transferase 11 U/L (0-37); Bilirubin,Total < 0.39 MG/DL (0.20-1.00); Blood Urea Nitrogen 180 MG/DL (7-18); Calcium 7.5 MG/DL (8.5-10.1); Carbon Dioxide 4 MMOL/L (21-32); Chloride 107 MMOL/L (98-107); Glucose 78 MG/DL (74-106); Osmolality,Calculated 326.2 MOS/KG (273-304); Potassium 4.5 MMOL/L (3.5-5.1); Sodium 134 MMOL/L (136-145)
[2022-12-04 12:24] LABS: Lymphocytes 2 % (20-55); Metamyelocytes 1 %; Total Cells Counted 100
[2022-12-04 12:25] LABS: Platelet Estimate Adequate
[2022-12-04] MEDS ORDERED: PIPERACILLIN/TAZOBACTAM 3,375 MG in SODIUM CHLORIDE 0.9% 100 ML IV STA (12:27)
[2022-12-04] MEDS ORDERED: PIPERACILLIN/TAZOBACTAM 3,375 MG VIAL IV ONE (12:29)
[2022-12-04] MEDS ORDERED: SODIUM CHLORIDE 0.9% 100 ML IV ONE (12:30)
[2022-12-04] MEDS ORDERED: hydrALAZINE 20 MG/1 ML VIAL IV PRN ×2 (14:07→21:00)
[2022-12-04] MEDS ORDERED: ONDANSETRON 4 MG/2 ML VIAL IV PRN ×2 (14:07→21:00)
[2022-12-04] MEDS ORDERED: HEPARIN 5,000 UNIT/1 ML VIAL SUBCUT SCH (14:30)
[2022-12-04 14:39] LABS: Risk Ratio 2.46; Thyroid Stimulating Hormone 1.86 uIU/ml (0.358-3.74); VLDL Cholesterol 23.2 MG/DL
[2022-12-04 20:13] LABS: Arterial Base Excess iSTAT -29 MMOL/L (-2.5-2.5); Arterial Bicarbonate iSTAT 1.8 MMOL/L (20-26); Arterial O2 Saturation iSTAT 98 % (95-100); Arterial PCO2 iSTAT 9 MM HG (35-48); Arterial PO2 iSTAT 165 MM HG (80-95); Arterial Total CO2 iSTAT < 5 MMO/L (23-27); Arterial pH iSTAT 6.907 (7.35-7.45)
[2022-12-04] MEDS ORDERED: SODIUM BICARBONATE 50 MEQ/50 ML VIAL IV ONE ×4 (20:17→20:34)
[2022-12-04] MEDS ORDERED: SODIUM BICARB INJ 50 MEQ in IV BAG 1 EACH IV ONE (20:30)
[2022-12-04 20:48] LABS: Calcium 7.7 MG/DL (8.5-10.1); Osmolality,Calculated 328.1 MOS/KG (273-304); Phosphorous 16.6 MG/DL (2.5-4.9); Potassium 4.6 MMOL/L (3.5-5.1)
[2022-12-04 21:00] LABS: Hepatitis B Core IgM Quant 0.52 Index; Hepatitis B Surface Ag Quant < 0.10 Index; Hepatitis B Surface Ag Result Non-Reactive (NonReactive); Hepatitis C Virus Ab Quant 0.03 Index; Hepatitis C Virus Ab Result Non-Reactive (NonReactive)
[2022-12-04] MEDS ORDERED: SODIUM BICARB INJ 150 MEQ in DEXTROSE 5% 1,000 ML IV SCH (21:00)
[2022-12-04] MEDS ORDERED: SODIUM BICARBONATE 650 MG TABLET PO SCH (21:00)
[2022-12-05] MEDS ORDERED: PIPERACILLIN/TAZOBACTAM 3,375 MG in SODIUM CHLORIDE 0.9% 100 ML IV SCH ×2
[2022-12-05 00:41] LABS: ABG Base Excess -2.2 MMOL/L (-2.5-2.5); ABG HCO3 22.4 MMOL/L (20-26); ABG Oxygen Saturation 88.4 % (95-100); ABG TCO2 17.1 MMOL/L (23-27)
[2022-12-05 00:43] LABS: ABG PCO2 18.1 MM HG (35-48); ABG PH 7.613 (7.35-7.45)
[2022-12-05] MEDS: PIPERACILLIN/TAZOBACTAM 3,375 MG in SODIUM CHLORIDE 0.9% 100 ML IV SCH ×2 (00:55→15:49)
[2022-12-05 01:13] LABS: Albumin 2.9 G/DL (3.4-5.0); Bilirubin,Total 0.5 MG/DL (0.20-1.00); Calcium 7.8 MG/DL (8.5-10.1); Osmolality,Calculated 300.3 MOS/KG (273-304); Total Protein 6.3 G/DL (6.4-8.2)
[2022-12-05 01:16] LABS: ABG Base Excess -2.1 MMOL/L (-2.5-2.5); ABG HCO3 22.7 MMOL/L (20-26); ABG Oxygen Saturation 98.4 % (95-100); ABG TCO2 17.3 MMOL/L (23-27)
[2022-12-05 01:19] LABS: Potassium 2.1 MMOL/L (3.5-5.1)
[2022-12-05 01:20] LABS: ABG PCO2 18.2 MM HG (35-48); ABG PH 7.613 (7.35-7.45)
[2022-12-05] MEDS ORDERED: POTASSIUM CHLORIDE RIDER 10 MEQ/100 ML PREMIX IV ONE (01:25)
[2022-12-05] MEDS: POTASSIUM CHLORIDE RIDER 10 MEQ/100 ML PREMIX IV SCH ×4 (01:35→06:10)
[2022-12-05] MEDS: HEPARIN 5,000 UNIT/1 ML VIAL SUBCUT SCH ×2 (02:42→15:53)
[2022-12-05] MEDS ORDERED: DEXTROSE 10% 250 ML IV ONE (03:14)
[2022-12-05] MEDS ORDERED: DEXTROSE 10% 250 ML BAG IV PRN (03:18)
[2022-12-05] MEDS ORDERED: DEXTROSE 10% 1,000 ML IV SCH (04:15)
[2022-12-05 04:39] LABS: ABG Base Excess -0.4 MMOL/L (-2.5-2.5); ABG HCO3 24.1 MMOL/L (20-26); ABG Oxygen Saturation 98.7 % (95-100); ABG PCO2 23.4 MM HG (35-48); ABG PH 7.563 (7.35-7.45); ABG TCO2 19.8 MMOL/L (23-27)
[2022-12-05] MEDS ORDERED: DEXTROSE 10% 500 ML IV SCH (04:45)
[2022-12-05 05:38] LABS: Basophils % 0.1 % (0.0-0.8); Hematocrit 21.1 VOL% (35.7-47.0); Hemoglobin 7.3 GM/DL (12.0-16.0); Immature Granulocytes % 1.3 %; Lymphocytes # 0.2 10*3/uL (1.4-4.0); Lymphocytes % 1.1 % (21.3-54.2); Mean Corpuscular HGB Conc 34.6 GM/DL (32-36); Mean Corpuscular Volume 85.4 FL (87-102); Mean Platelet Volume 12.4 FL (9.6-12.0); Monocytes # 0.7 10*3/uL (0.11-0.8); Monocytes % 4.3 % (1.7-12.7); NRBC # 0.02 10*3/uL; Neutrophils % 93.2 % (38.7-73.9); Platelet Count 175 T/CUMM (130-400); Red Blood Count 2.47 MC/CUMM (3.8-5.5); Red Cell Distribution Width 14.1 % (9.3-17.3)
[2022-12-05 05:43] LABS: INR 1.5; PT Patient Result 16.1 SECS (10.1-12.1); Partial Thromboplastin Time 33.6 SECS (23.7-32.9)
[2022-12-05 06:03] LABS: Albumin 2.6 G/DL (3.4-5.0); Bilirubin,Total 0.4 MG/DL (0.20-1.00); Calcium 6.9 MG/DL (8.5-10.1); Osmolality,Calculated 302.3 MOS/KG (273-304); Total Protein 5.9 G/DL (6.4-8.2)
[2022-12-05 06:06] LABS: Potassium 2.1 MMOL/L (3.5-5.1)
[2022-12-05 06:13] LABS: Band Neutrophils 2 % (0-10); Hypochromia Slight; Lymphocytes 1 % (20-55); Total Cells Counted 100
[2022-12-05 06:14] LABS: Microcytosis Slight; Ovalocytes Slight; Platelet Estimate Adequate
[2022-12-05] MEDS ORDERED: POTASSIUM CHLORIDE RIDER 20 MEQ/100 ML PREMIX IV ONE (06:30)
[2022-12-05] MEDS ORDERED: PANTOPRAZOLE 40 MG TABLET PO SCH (09:00)
[2022-12-05] MEDS ORDERED: VANCOMYCIN INJ 1,500 MG in SODIUM CHLORIDE 0.9% 250 ML IV ONE (11:00)
[2022-12-05] MEDS ORDERED: VANCOMYCIN INJ 500 MG in SODIUM CHLORIDE 0.9% 100 ML IV PRN (12:49)
[2022-12-05 17:28] LABS: Calcium 7.2 MG/DL (8.5-10.1); Osmolality,Calculated 284.1 MOS/KG (273-304); Potassium 3.1 MMOL/L (3.5-5.1)
[2022-12-05] MEDS ORDERED: EPOETIN ALFA-EPBX 10,000 UNIT/ML VIAL IV SCH (17:30)
[2022-12-05] MEDS ORDERED: EPOETIN ALFA-EPBX 10,000 UNIT/ML VIAL SUBCUT SCH (17:30)
[2022-12-05] MEDS: DESITIN 4OZ/NYSTATIN 15 GRAM MIXTURE PASTE TOP SCH ×2 (17:48→22:25)
[2022-12-05] MEDS ORDERED: EPOETIN ALFA-EPBX 4,000 UNIT/ML VIAL IV SCH (18:00)
[2022-12-05] MEDS: SEVELAMER CARBONATE 800 MG TABLET PO SCH (18:16)
[2022-12-05] MEDS ORDERED: MAGNESIUM SULF RIDER 2 GM/50 ML PREMIX IV ONE (21:00)
[2022-12-05] MEDS ORDERED: POTASSIUM CHLORIDE 20 MEQ TABLET PO ONE (21:00)
[2022-12-05] MEDS ORDERED: POTASSIUM CHLORIDE RIDER 20 MEQ/100 ML PREMIX IV PRN (21:14)
[2022-12-05] MEDS: POTASSIUM CHLORIDE RIDER 20 MEQ/100 ML PREMIX IV PRN (22:24)
[2022-12-06] MEDS: POTASSIUM CHLORIDE RIDER 20 MEQ/100 ML PREMIX IV PRN ×2 (00:31→06:48)
[2022-12-06] MEDS: PIPERACILLIN/TAZOBACTAM 3,375 MG in SODIUM CHLORIDE 0.9% 100 ML IV SCH ×2 (00:31→12:15)
[2022-12-06 04:47] LABS: Basophils % 0.1 % (0.0-0.8); Eosinophils % 0.2 % (0.00-10.9); Hematocrit 22.1 VOL% (35.7-47.0); Hemoglobin 7.4 GM/DL (12.0-16.0); Immature Granulocytes % 0.9 %; Immature Granulocytes Absolute 0.08 #; Lymphocytes % 11.6 % (21.3-54.2); Mean Corpuscular HGB Conc 33.5 GM/DL (32-36); Mean Corpuscular Volume 90.2 FL (87-102); Mean Platelet Volume 11.5 FL (9.6-12.0); Monocytes # 0.9 10*3/uL (0.11-0.8); Monocytes % 10.2 % (1.7-12.7); Platelet Count 160 T/CUMM (130-400); Red Blood Count 2.45 MC/CUMM (3.8-5.5); Red Cell Distribution Width 14.8 % (9.3-17.3); White Blood Count 8.6 T/CUMM (4-12)
[2022-12-06] MEDS: HEPARIN 5,000 UNIT/1 ML VIAL SUBCUT SCH ×2 (04:52→14:02)
[2022-12-06 05:07] LABS: Albumin 2.5 G/DL (3.4-5.0); Bilirubin,Total 0.5 MG/DL (0.20-1.00); Calcium 6.9 MG/DL (8.5-10.1); Osmolality,Calculated 289.8 MOS/KG (273-304); Potassium 3.4 MMOL/L (3.5-5.1); Total Protein 5.8 G/DL (6.4-8.2)
[2022-12-06 05:08] LABS: % Iron Saturation 87.7 % (18-50); Ferritin 1928.6 ng/mL (8-252); Phosphorous 3.1 MG/DL (2.5-4.9); Uric Acid 2.3 MG/DL (2.6-6.0)
[2022-12-06 05:11] LABS: Folate 7.86 NG/ML (5.38-24.0)
[2022-12-06] MEDS: SEVELAMER CARBONATE 800 MG TABLET PO SCH ×3 (08:48→16:22)
[2022-12-06] MEDS: DESITIN 4OZ/NYSTATIN 15 GRAM MIXTURE PASTE TOP SCH ×3 (08:48→21:09)
[2022-12-06] MEDS: MORPHINE 2 MG/1 ML SYRINGE IV PRN (20:53)
[2022-12-07] MEDS: PIPERACILLIN/TAZOBACTAM 3,375 MG in SODIUM CHLORIDE 0.9% 100 ML IV SCH ×2 (00:20→11:08)
[2022-12-07] MEDS ORDERED: DEXTROSE 50% 25 GM/50 ML SYRINGE IV ONE (00:24)
[2022-12-07] MEDS ORDERED: DEXTROSE 50% 25 GM/50 ML SYRINGE IV PRN (00:33)
[2022-12-07] MEDS: MORPHINE 2 MG/1 ML SYRINGE IV PRN ×4 (02:13→20:18)
[2022-12-07] MEDS: HEPARIN 5,000 UNIT/1 ML VIAL SUBCUT SCH ×2 (02:44→14:19)
[2022-12-07 04:31] LABS: Basophils % 0.4 % (0.0-0.8); Eosinophils # 0.2 10*3/uL (0.0-0.87); Eosinophils % 2.9 % (0.00-10.9); Hematocrit 24.6 VOL% (35.7-47.0); Hemoglobin 7.8 GM/DL (12.0-16.0); Immature Granulocytes % 1.1 %; Immature Granulocytes Absolute 0.08 #; Lymphocytes # 1.4 10*3/uL (1.4-4.0); Lymphocytes % 18.2 % (21.3-54.2); Mean Corpuscular HGB Conc 31.7 GM/DL (32-36); Mean Corpuscular Volume 92.1 FL (87-102); Mean Platelet Volume 11.7 FL (9.6-12.0); Monocytes # 0.8 10*3/uL (0.11-0.8); Neutrophils % 66.4 % (38.7-73.9); Platelet Count 152 T/CUMM (130-400); Red Blood Count 2.67 MC/CUMM (3.8-5.5); Red Cell Distribution Width 14.8 % (9.3-17.3); White Blood Count 7.5 T/CUMM (4-12)
[2022-12-07 04:48] LABS: Albumin 2.7 G/DL (3.4-5.0); Bilirubin,Total 0.5 MG/DL (0.20-1.00); Calcium 7.5 MG/DL (8.5-10.1); Osmolality,Calculated 280.3 MOS/KG (273-304); Potassium 3.2 MMOL/L (3.5-5.1); Total Protein 6.3 G/DL (6.4-8.2)
[2022-12-07] MEDS: POTASSIUM CHLORIDE RIDER 20 MEQ/100 ML PREMIX IV PRN ×2 (06:40→09:45)
[2022-12-07] MEDS: SEVELAMER CARBONATE 800 MG TABLET PO SCH ×3 (07:53→16:20)
[2022-12-07] MEDS: DESITIN 4OZ/NYSTATIN 15 GRAM MIXTURE PASTE TOP SCH ×2 (09:26→20:26)
[2022-12-07] MEDS: POTASSIUM CHLORIDE 20 MEQ TABLET PO SCH (20:18)
[2022-12-08] MEDS: MORPHINE 2 MG/1 ML SYRINGE IV PRN ×4 (02:19→21:40)
[2022-12-08] MEDS: HEPARIN 5,000 UNIT/1 ML VIAL SUBCUT SCH ×2 (02:19→08:45)
[2022-12-08 03:50] LABS: Basophils % 0.3 % (0.0-0.8); Eosinophils # 0.5 10*3/uL (0.0-0.87); Eosinophils % 8.4 % (0.00-10.9); Hematocrit 23.7 VOL% (35.7-47.0); Hemoglobin 7.3 GM/DL (12.0-16.0); Immature Granulocytes % 0.5 %; Immature Granulocytes Absolute 0.03 #; Lymphocytes # 1.3 10*3/uL (1.4-4.0); Lymphocytes % 21.6 % (21.3-54.2); Mean Corpuscular HGB Conc 30.8 GM/DL (32-36); Mean Platelet Volume 11.3 FL (9.6-12.0); Monocytes # 0.6 10*3/uL (0.11-0.8); Monocytes % 10.1 % (1.7-12.7); Neutrophils % 59.1 % (38.7-73.9); Platelet Count 154 T/CUMM (130-400); Red Blood Count 2.47 MC/CUMM (3.8-5.5); Red Cell Distribution Width 14.8 % (9.3-17.3); White Blood Count 6.2 T/CUMM (4-12)
[2022-12-08 04:05] LABS: Calcium 7.4 MG/DL (8.5-10.1); Osmolality,Calculated 277.7 MOS/KG (273-304); Potassium 4.6 MMOL/L (3.5-5.1)
[2022-12-08] MEDS: POTASSIUM CHLORIDE 20 MEQ TABLET PO SCH ×2 (08:45→22:39)
[2022-12-08] MEDS: SEVELAMER CARBONATE 800 MG TABLET PO SCH ×3 (08:45→17:15)
[2022-12-08] MEDS ORDERED: EPOETIN ALFA-EPBX 4,000 UNIT/ML VIAL IV PRN (12:00)
[2022-12-08] MEDS: DESITIN 4OZ/NYSTATIN 15 GRAM MIXTURE PASTE TOP SCH ×2 (15:45→22:39)
[2022-12-09] MEDS: HEPARIN 5,000 UNIT/1 ML VIAL SUBCUT SCH ×2 (04:18→16:41)
[2022-12-09] MEDS: MORPHINE 2 MG/1 ML SYRINGE IV PRN ×2 (05:39→10:35)
[2022-12-09] MEDS: SEVELAMER CARBONATE 800 MG TABLET PO SCH ×3 (08:10→16:41)
[2022-12-09 08:18] LABS: Basophils % 0.3 % (0.0-0.8); Eosinophils # 0.5 10*3/uL (0.0-0.87); Eosinophils % 7.7 % (0.00-10.9); Hematocrit 23.1 VOL% (35.7-47.0); Hemoglobin 7.2 GM/DL (12.0-16.0); Immature Granulocytes Absolute 0.06 #; Lymphocytes # 1.8 10*3/uL (1.4-4.0); Lymphocytes % 29.4 % (21.3-54.2); Mean Corpuscular HGB Conc 31.2 GM/DL (32-36); Mean Corpuscular Volume 95.9 FL (87-102); Mean Platelet Volume 11.2 FL (9.6-12.0); Monocytes # 0.8 10*3/uL (0.11-0.8); Monocytes % 13.4 % (1.7-12.7); Neutrophils % 48.2 % (38.7-73.9); Platelet Count 161 T/CUMM (130-400); Red Blood Count 2.41 MC/CUMM (3.8-5.5); Red Cell Distribution Width 14.5 % (9.3-17.3)
[2022-12-09 08:32] LABS: Calcium 7.9 MG/DL (8.5-10.1); Osmolality,Calculated 272.7 MOS/KG (273-304); Potassium 4.6 MMOL/L (3.5-5.1)
[2022-12-09] MEDS: POTASSIUM CHLORIDE 20 MEQ TABLET PO SCH ×2 (09:24→22:32)
[2022-12-09] MEDS ORDERED: SODIUM CHLORIDE 0.9% 1,000 ML IV PRN (10:28)
[2022-12-09] MEDS: DESITIN 4OZ/NYSTATIN 15 GRAM MIXTURE PASTE TOP SCH ×2 (15:23→22:32)
[2022-12-10] MEDS: HEPARIN 5,000 UNIT/1 ML VIAL SUBCUT SCH ×2 (03:45→20:13)
[2022-12-10 05:27] LABS: Basophils % 0.4 % (0.0-0.8); Eosinophils # 0.5 10*3/uL (0.0-0.87); Eosinophils % 6.5 % (0.00-10.9); Hematocrit 30.8 VOL% (35.7-47.0); Hemoglobin 9.6 GM/DL (12.0-16.0); Immature Granulocytes % 2.4 %; Immature Granulocytes Absolute 0.18 #; Lymphocytes # 1.6 10*3/uL (1.4-4.0); Lymphocytes % 21.8 % (21.3-54.2); Mean Corpuscular HGB Conc 31.2 GM/DL (32-36); Mean Corpuscular Volume 93.3 FL (87-102); Mean Platelet Volume 11.9 FL (9.6-12.0); Monocytes # 0.8 10*3/uL (0.11-0.8); Monocytes % 10.8 % (1.7-12.7); NRBC # 0.03 10*3/uL; Neutrophils % 58.1 % (38.7-73.9); Platelet Count 114 T/CUMM (130-400); Red Cell Distribution Width 17.4 % (9.3-17.3); White Blood Count 7.4 T/CUMM (4-12)
[2022-12-10 05:43] LABS: Calcium 8.2 MG/DL (8.5-10.1); Osmolality,Calculated 275.4 MOS/KG (273-304); Potassium 4.8 MMOL/L (3.5-5.1)
[2022-12-10 05:59] LABS: Hypochromia Slight; Microcytosis Slight
[2022-12-10] MEDS: POTASSIUM CHLORIDE 20 MEQ TABLET PO SCH ×2 (08:11→20:11)
[2022-12-10] MEDS: SEVELAMER CARBONATE 800 MG TABLET PO SCH ×3 (08:11→17:15)
[2022-12-10] MEDS: DESITIN 4OZ/NYSTATIN 15 GRAM MIXTURE PASTE TOP SCH ×2 (08:12→21:15)
[2022-12-10] MEDS: MORPHINE 2 MG/1 ML SYRINGE IV PRN ×2 (10:31→15:14)
[2022-12-10] MEDS ORDERED: ceFAZolin 2,000 MG/50 ML DUPLEX IV SCH (17:00)
[2022-12-11] MEDS: MORPHINE 2 MG/1 ML SYRINGE IV PRN ×2 (02:58→14:51)
[2022-12-11 05:07] LABS: Basophils # 0.1 10*3/uL (0.0-0.2); Basophils % 0.5 % (0.0-0.8); Eosinophils # 0.4 10*3/uL (0.0-0.87); Eosinophils % 3.9 % (0.00-10.9); Hematocrit 31.5 VOL% (35.7-47.0); Hemoglobin 9.2 GM/DL (12.0-16.0); Immature Granulocytes % 2.5 %; Immature Granulocytes Absolute 0.25 #; Lymphocytes # 1.9 10*3/uL (1.4-4.0); Lymphocytes % 18.3 % (21.3-54.2); Mean Corpuscular HGB Conc 29.2 GM/DL (32-36); Mean Corpuscular Volume 97.5 FL (87-102); Monocytes % 9.5 % (1.7-12.7); NRBC # 0.14 10*3/uL; Neutrophils % 65.3 % (38.7-73.9); Platelet Count 91 T/CUMM (130-400); Red Blood Count 3.23 MC/CUMM (3.8-5.5); Red Cell Distribution Width 17.3 % (9.3-17.3)
[2022-12-11 05:22] LABS: Calcium 8.4 MG/DL (8.5-10.1); Osmolality,Calculated 273.5 MOS/KG (273-304)
[2022-12-11 05:25] LABS: White Blood Count 10.2 T/CUMM (4-12)
[2022-12-11 08:14] VITALS: BP 123/55
[2022-12-11] MEDS: POTASSIUM CHLORIDE 20 MEQ TABLET PO SCH (08:54)
[2022-12-11] MEDS: SEVELAMER CARBONATE 800 MG TABLET PO SCH ×2 (08:54→13:32)
[2022-12-11] MEDS: HEPARIN 5,000 UNIT/1 ML VIAL SUBCUT SCH (09:01)
[2022-12-11] MEDS: DESITIN 4OZ/NYSTATIN 15 GRAM MIXTURE PASTE TOP SCH (09:04)
[2022-12-11] MEDS ORDERED: ceFAZolin 2,000 MG/50 ML DUPLEX IV ONE (15:00)
== END 2022-12-11 16:10 | disposition home health service (06) | DRG 640 ==
LOC: N.ED 11:19 → SUATTDRO 14:15 → N.EDINP 14:15 → N.3E 17:57 → N.ICU 20:22 → N.2E 12-09 17:21
PROVIDERS: ADMIT Hospitalist; ATTEND Hospitalist